=== PATIENT | female | born 1945 | race Caucasian/White ===

== ENCOUNTER 2017-04-29 23:16 | Emergency (ER) | payer MEDICARE, OTHER ==
[~2017-04-29] VITALS: Ht 165.1 cm; Wt 77.0 kg
[2017-04-29 23:16] VITALS: Ht 165.1 cm; Wt 77.0 kg
[2017-04-29] MEDS ORDERED: ALBUTEROL 0.083% (NEB) 2.5 MG/3 ML AMP HHN STA (23:39)
[2017-04-30] MEDS ORDERED: IPRATROPIUM (NEB) 0.5 MG/2.5 ML AMP HHN ONE
[2017-04-30 00:07] LABS: BASOPHILS % 0.3 % (0.0-2.0); EOSINOPHILS % 0.3 % (0.0-7.0); HEMATOCRIT 36.8 % (37.0-47.0); HEMOGLOBIN 12.2 g/dl (12.0-16.0); LYMPHOCYTES # 0.7 10^3/ul (0.8-2.9); LYMPHOCYTES % 4.6 % (15.0-51.0); MEAN CORPUSCULAR HEMOGLOBIN 30.3 pg (29.0-33.0); MEAN CORPUSCULAR HGB CONC 33.2 g/dl (32.0-37.0); MEAN CORPUSCULAR VOLUME 91.3 fl (82.0-101.0); MEAN PLATELET VOLUME 9.6 fl (7.4-10.4); MONOCYTE # 1.4 10^3/ul (0.3-0.9); NEUTROPHIL # 13.6 10^3/ul (1.6-7.5); NEUTROPHILS % 85.5 % (39.0-77.0); PLATELET COUNT 440 10^3/UL (140-415); RED BLOOD COUNT 4.03 10^6/ul (4.20-5.40); RED CELL DISTRIBUTION WIDTH 12.5 % (11.5-14.5); WHITE BLOOD COUNT 15.9 10^3/ul (4.8-10.8)
--- NOTE | 2017-04-30 00:26 | ERD ---
ER Documentation Chief Complaint Chief Complaint sob that started to increased throught the day HPI 81-year-old female states that she has had increasing shortness of breath throughout the day. Does have a history of COPD. Denies any chest pain. Does have dry cough for the duration of the day as well. Has had chills but no fevers. Denies nausea vomiting. He is on home oxygen at all times. ROS All systems reviewed and are negative except as per history of present illness. Medications Home Meds Active Scripts Fluticasone Propionate (Flonase Allergy Relief) 9.9 Ml Bernie.susp, 1 SPRAY NASAL BID, #1 BOTTLE TO EACH NOSTRIL Prov:JENNIFER MONROY DO 04/30/17 Ondansetron (Zofran Odt) 4 Mg Tab.rapdis, 4 MG PO Q6 for NAUSEA AND/OR VOMITING , #10 Prov:JENNIEFR MONROY DO 04/30/17 Levofloxacin* (Levaquin*) 500 Mg Tablet, 500 MG PO DAILY for 7 Days, TAB Prov:JENNIFER MONROY 04/30/17 PMhx/Soc History of Surgery: No Anesthesia Reaction: No Hx Neurological Disorder: Yes (neuropathy) Hx Respiratory Disorders: Yes (copd) Hx Cardiac Disorders: Yes (htn) Hx Psychiatric Problems: No Hx Miscellaneous Medical Probl: No Hx Alcohol Use: No Hx Substance Use: No Hx Tobacco Use: No Smoking Status: Unknown if ever smoked Physical Exam Vitals Vital Signs Date Time Temp Pulse Resp B/P Pulse Ox O2 Delivery O2 Flow Rate FiO2 04/30/17 01:15 98.0 88 22 132/70 100 Nasal Cannula 2.0 04/29/17 23:44 Nasal Cannula 4 04/29/17 23:44 Nasal Cannula 4.0 04/29/17 23:16 98.0 94 22 160/103 100 Physical Exam Const: [] Mild distress Head: Atraumatic Eyes: Normal Conjunctiva ENT: Normal External Ears, Nose and Mouth. Neck: Full range of motion..~ No meningismus. Resp: Very mild expiratory wheezing. Cardio: Regular rate and rhythm, no murmurs Abd: Soft, non tender, non distended. Normal bowel sounds Skin: No petechiae or rashes Back: No midline or flank tenderness Ext: No cyanosis, or edema, distal pulses intact all 4 extremities Neur: Awake and alert oriented 3, no focal deficits Psych: Normal Mood and Affect Result Diagram: 04/29/17 2357 04/29/17 2357 Results 24 hrs Laboratory Tests Test 04/29/17 23:57 04/30/17 01:25 04/30/17 01:26 White Blood Count 15.910^3/ul Red Blood Count 4.0310^6/ul Hemoglobin 12.2g/dl Hematocrit 36.8% Mean Corpuscular Volume 91.3fl Mean Corpuscular Hemoglobin 30.3pg Mean Corpuscular Hemoglobin Concent 33.2g/dl Red Cell Distribution Width 12.5% Platelet Count 14036^3/UL Mean Platelet Volume 9.6fl Neutrophils % 85.5% Lymphocytes % 4.6% Monocytes % 9.0% Eosinophils % 0.3% Basophils % 0.3% Nucleated Red Blood Cells % 0.0/100WBC Neutrophils # 13.610^3/ul Lymphocytes # 0.710^3/ul Monocytes # 1.410^3/ul Eosinophils # 0.010^3/ul Basophils # 0.010^3/ul Nucleated Red Blood Cells # 0.010^3/ul Sodium Level 135mmol/L Potassium Level 3.8mmol/L Chloride Level 92mmol/L Carbon Dioxide Level 36mmol/L Anion Gap 11 Blood Urea Nitrogen 16mg/dl Creatinine 0.66mg/dl Glucose Level 118mg/dl Calcium Level 9.8mg/dl Troponin I 0.014ng/ml B-Type Natriuretic Peptide 361PG/ML Urine Color STRAW Urine Clarity CLEAR Urine pH 6.0 Urine Specific [facility] 1.005 Urine Ketones NEGATIVEmg/dL Urine Nitrite NEGATIVEmg/dL Urine Bilirubin NEGATIVEmg/dL Urine Urobilinogen NEGATIVEmg/dL Urine Leukocyte Esterase TRACELeu/ul Urine Microscopic RBC 1/HPF Urine Microscopic WBC 4/HPF Urine Hemoglobin 1+mg/dL Urine Glucose NEGATIVEmg/dL Urine Total Protein NEGATIVEmg/dl Bedside Urine pH (LAB) 6.5 Bedside Urine Protein (LAB) Negative Bedside Urine Glucose (UA) Negative Bedside Urine Ketones (LAB) Negative Bedside Urine Blood Trace-lysed Bedside Urine Nitrite (LAB) Negative Bedside Urine Leukocyte Esterase (L Trace Current Medications Medications (Trade) Dose Ordered Sig/Belkys Route PRN Reason Start Time Stop Time Status Last Admin Dose Admin Albuterol (Proventil 0.083% (Neb)) 5 mg ONCE STAT [facility] 12/26/17 23:39 04/29/17 23:41 DC Ipratropium [place] (Atrovent 0.02% (Neb)) 0.5 mg ONCE ONCE [facility] 04/30/17 00:00 04/30/17 00:01 DC Procedures/MDM Elderly female with acute bronchitis as well as possible UTI who does meet sepsis criteria just barely however she does not want to stay in hospital for any reason. She received albuterol Atrovent breathing treatment and feels much better. No signs of acute cardiac ischemia. Mildly elevated BNP without evidence of pulmonary edema or engorgement of pulmonary vascular and chest x- ray. Does have elevated white blood cell count and platelets likely acute phase reactant. Believe it is prudent to discharge with Levaquin which will cover for both bronchitis and urinary tract infection as well as Zofran. No pain. Also has nasal congestion and runny discharge with Flonase. Number care follow-up with recommendations for an echocardiogram as an outpatient. EKG interpretation: Sinus tachycardia rate of 102, normal axis, no ST or T-wave changes concerning for acute ischemia, nonspecific ST-T wave abnormality, normal intervals. Abnormal EKG teletypesetter monitor interpretation: Normal sinus rhythm arrhythmia Ronald interpretation: I see no acute process, chronic scarring, I see no infiltrates, no pneumothorax, no poor edema, no fractures Departure Diagnosis: Primary Impression: Acute bronchitis Additional Impressions: Dyspnea Generalized weakness Condition: JENNIFER Garcia DO Apr 30, 2017 00:26
[2017-04-30 00:27] LABS: CALCIUM 9.8 mg/dl (8.4-10.2); CREATININE 0.66 mg/dl (0.44-1.00); POTASSIUM 3.8 mmol/L (3.5-5.1)
[2017-04-30 00:39] LABS: TROPONIN-I 0.014 ng/ml (0.00-0.12)
--- NOTE | 2017-04-30 01:13 | RADRPT ---
PROCEDURE: XR Chest. CLINICAL INDICATION: Chest Pain. TECHNIQUE: Single frontal view of the chest was obtained COMPARISON: None FINDINGS: The heart and mediastinum are within normal limits. Thoracic aortic atherosclerotic calcifications a re noted. There are diffuse bilateral miliary opacities which appear calcified and likely represent old TB. Bilateral lower lobe fibrosis or discoid atelectasis is present. No consolidation, pleural e ffusion, pulmonary edema, or pneumothorax. Asymmetrically advanced degenerative changes of the right shoulder joint possibly secondary to old trauma are present. IMPRESSION: 1. No acute pulmonary disease. 2. Bilateral miliary opacities which appear calcified and likely represent old TB. 3. Bilateral lower lobe fibrosis or discoid atelectasis. 3. Thoracic aortic atherosclerotic calcifications. 4. Asymmetrically advanced degenerative changes of the right shoulder joint possibly related to old trauma. RPTAT: HRSR Physician Frantz Date Time Electronically viewed and signed by Physician Frantz on 04/30/2017 01:13 /
[2017-04-30 01:15] VITALS: TEMP 98
[2017-04-30 01:26] LABS: URINE BLOOD (Dip) POC Trace-lysed (NEGATIVE)
[2017-04-30 01:58] LABS: ADD UMIC YES; UR ASCORBIC ACID NEGATIVE (NEGATIVE); UR BILIRUBIN (Dip) NEGATIVE (NEGATIVE); UR BLOOD (Dip) 1+ mg/dL (NEGATIVE); UR CLARITY CLEAR (CLEAR); UR COLOR STRAW (YELLOW); UR GLUCOSE (Dip) NEGATIVE (NEGATIVE); UR KETONES (Dip) NEGATIVE (NEGATIVE); UR LEUKOCYTE ESTERASE (Dip) TRACE Leu/ul (NEGATIVE); UR NITRITE (Dip) NEGATIVE (NEGATIVE); UR RBC 1 /HPF (0-5); UR SPECIFIC GRAVITY (Dip) 1.005 (1.003-1.030); UR TOTAL PROTEIN (Dip) NEGATIVE (NEGATIVE); UR UROBILINOGEN (Dip) NEGATIVE (NEGATIVE)
[2017-04-30] MEDS ORDERED: LEVO500T72 PO (03:08)
[2017-04-30] MEDS ORDERED: ONDA4TAB11 PO (03:08)
[2017-04-30] MEDS ORDERED: FLUT9.9S NASAL (03:09)
[2017-04-30 04:49] VITALS: BP 150/77; PULSE 103; RESP 22
== END 2017-04-30 04:50 | disposition home or self-care (01) ==
LOC: E/R 23:16
DX: J20.9 Acute bronchitis, unspecified (principal); R06.00 Dyspnea, unspecified; R53.1 Weakness; J44.9 Chronic obstructive pulmonary disease, unspecified; I10 Essential (primary) hypertension
CPT/HCPCS: 36415; 71010; 80048; 81001; 81003; 83880; 84484; 85025; 87400; 93005; 94664